=== PATIENT | male | born 1995 | race Caucasian/White ===

== ENCOUNTER 2020-01-31 12:18 | Emergency (ER) | payer MEDICAID, OTHER ==
[2020-01-31] MEDS ORDERED: HYDROCODONE/ACETAMINOPHEN 5-325 MG TABLET PO ONE ×2 (14:04→16:13)
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
[2020-01-31 16:42] LABS: URINE BARBITURATES SCREEN NEGATIVE; URINE BENZODIAZEPINES SCREEN NEGATIVE; URINE COCAINE SCREEN NEGATIVE; URINE METHADONE SCREEN NEGATIVE; URINE PHENCYCLIDINE SCREEN NEGATIVE
[2020-01-31 16:45] LABS: URINE MARIJUANA (THC) SCREEN UNCONFIRMED POSITIVE
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
[2020-01-31 17:40] VITALS: BP 132/81
== END 2020-01-31 17:44 | disposition home or self-care (01) ==
LOC: ER 12:18
PROC: 2W3CX1Z Immobilization of Right Lower Arm using Splint (ICD-10-PCS; principal; 2020-01-31)
DX: S52.614A Nondisplaced fracture of right ulna styloid process, initial encounter for closed fracture (principal); S00.83XA Contusion of other part of head, initial encounter; S09.90XA Unspecified injury of head, initial encounter; S80.02XA Contusion of left knee, initial encounter; M25.531 Pain in right wrist; M25.562 Pain in left knee; R68.84 Jaw pain; M79.89 Other specified soft tissue disorders; Y08.09XA Assault by strike by other specified type of sport equipment, initial encounter; Z87.891 Personal history of nicotine dependence
CPT/HCPCS: 70450; 70486; 80307; 99284